=== PATIENT | female | born 1985 | race African-American/Black ===

== ENCOUNTER 2016-10-06 19:16 | Inpatient (IN) | payer OTHER ==
[~2016-10-06] VITALS: Ht 167.6 cm; Wt 100.0 kg
[~2016-10-06 19:16] MED LIST: ACET50TA PO; IBUP80TA PO; PRENTAB9 PO; [UNRECOGNIZED DRUG - CODE] SC
[2016-10-06 20:05] LABS: MEAN CORPUSCULAR HEMOGLOBIN 25.3 pg (27.0-33.0); MEAN CORPUSCULAR HGB CONC 32.2 g/dl (32.0-36.5); MEAN CORPUSCULAR VOLUME 78.5 fl (80.0-96.0); RED CELL DISTRIBUTION WIDTH 15.9 % (11.5-14.5); WHITE BLOOD COUNT 4.8 K/mm3 (4.0-10.0)
[2016-10-06] MEDS ORDERED: OXYTOCIN 30 UNITS IN 0.9% NaCl 500ML IV BAG (J2590) As Ordered ONE (20:26)
--- NOTE | 2016-10-06 21:23 | HPEPDOC ---
Obstetrical History & Physical General Date of Admission Oct 06, 2016 at 19:45 History of Present Illness Evelyne is a 30yo with SIUP at 39w5d presenting this evening for loss of fluid, clear, at 1800. She states she has not been having regular painful ctx. No vaginal bleeding. Feels good movement. 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 Complications: No Past Obstetrical History #2: Past Obstetrical History: Multigravida Date of Delivery: Jul 09, 2006 Gestation: 38 Type of Delivery: Spontaneous Vaginal Del. Complications: No Past Obstetrical History #3: Past Obstetrical History: Multigravida Date of Delivery: Oct 09, 2007 Gestation: 38 Type of Delivery: Spontaneous Vaginal Del. Complications: No Past Obstetrical History #4: Past Obstetrical History: Multigravida Date of Delivery: Nov 06, 2014 Gestation: 38 Type of Delivery: Spontaneous Vaginal Del. Complications: No (this of SIDS) SLATE PICKER History: Spontaneous , Herpes simplex virus(HSV) Past Medical History Medical History Ulcerative Colitis on Humira until 28wk, anemia Surgical History: Dilation and curettage, Breast Augmentation, [facility] Teeth Family History Significant Family History: No pertinent family hx Social History Marital Status: Family situation: Spouse/partner home Psychosocial History: No pertinent psych hx * Smoker: non-smoker Alcohol: denies Drugs: denies Imunizations Tdap status: declined Influenza Status: current Allergies Coded Allergies: No Known Drug Allergy (Verified Allergy, Unknown, 12/12/12) Medications Scheduled Multivitamins/ ( 27-0.8 mg) 1 Tab Tab 1 TAB PO DAILY Scheduled PRN Acetaminophen (Mapap) 500 Mg Tab 1,000 MG PO PRN PRN PRN PAIN Miscellaneous Medications (Humira) 10 Mg/0.2 Ml Inj 10 MG SC Physical Examination Physical Examination GENERAL: Alert and oriented times three. BREAST: . ABDOMEN: Gravid and non-tender to touch. FETUS: Is vertex (VTX) by sterile vaginal examination (SVE) HEART RATE: Regular rate and rhythm. LUNGS: Clear to auscultation (CTA). EXTREMITIES: trace edema of BLE Speculum exam with RN as drug inspector: no HSV lesions on thorough inspection of perineum, vulva, vaginal canal and cervix Nitrazine positive Laboratory Data 24H LABS Laboratory Tests 2 10/06/16 19:53: CBC/BMP Laboratory Tests 10/06/16 19:53 Red Blood Count 4.03, Mean Corpuscular Volume 78.5 L, Mean Corpuscular Hemoglobin 25.3 L, Mean Corpuscular Hemoglobin Concent 32.2, Red Cell Distribution Width 15.9 H Pertinent Laboratoy Data Blood Type: A+ RBC Antibody Screen: Negative HIV: Negative Hepatitis B: Negative Hepatitis C: Unknown Rapid Plasma Reagin: Nonreactive Rubella: Immune Chlamydia/Gonorrhea: Negative Group B Streptococcus: Negative Glucose Tolerance Test: 86 Anatomy Ultrasound Ultrasound Date: May 20, 2016 Placenta Location: Posterior Normal Anatomy: Yes Placenta Previa: No Steroid Therapy Steroid Therapy: No Vaginal Examination Dilation: 6 cm Effacement: 80+% Station: -2 Cervical Consistency: Soft Cervical Position: Anterior Presentation: Cephalic presentation Assessment Heart Rate (FHR): 120 Variability: Moderate Accelerations: Positive Decelerations: None Tocometer Contractions: Yes Frequency: irregular Duration: greater than 60 seconds Strength: palpated as mild Assessment/Plan Assessment Evelyne is a 30yo with SIUP at 39w5d with SROM at 1800, SCE 6/90/-2 ( forebag ruptured on SCE, clear fluid). Cat I FHRT. Cephalic by SCE. Ctx not yet painful and regular. GBS negative. PMhx: ulcerative colitis on Humira until 28wk, HSV II on valtrex since 36wk w/ last outbreak 1-2yr ago (negative exam on admission), anemia course: polyhydramnios with no congenital abnormalities noted on ultrasounds, nuchal fold 6.6 with normal NIPT. Has had 4 uncomplicated term SVDs previously, but one infant of SIDS. Plan Admit and orient. Counseled and consented verbally for Diet: clear liquids Group B Streptococcus (GBS) negative Labs and intravenous (IV) per unit protocol. Counseled on Pitocin and induction of labor (IOL). Hep lock IV for now Anticipate normal spontaneous delivery (). MD Meseret Aguayo OBGYN DAVIS, KATRINA D. MD Oct 06, 2016 21:23
[2016-10-06] MEDS ORDERED: IBUPROFEN 800 MG TAB As Ordered ONE (23:05)
[2016-10-07] MEDS ORDERED: ACETAMINOPHEN 500 MG TAB PO PRN (00:15)
[2016-10-07] MEDS ORDERED: LIDOCAINE 1% MDV INJ 50 ML VIAL INFIL ONE ×2 (00:15→16:00)
[2016-10-07] MEDS ORDERED: MEASLES,MUMPS,RUBELLA VACCINE INJ (MMR-II) (90707) SC SCH (00:15)
[2016-10-07] MEDS ORDERED: METHYLERGONOVINE MALEATE 0.2 MG TAB PO PRN (00:15)
[2016-10-07] MEDS ORDERED: DIBUCAINE 1% OINTMENT 30GM TOP PRN (00:15)
[2016-10-07] MEDS ORDERED: miSOPROStol 200 MCG TAB (S0191) PR ONE ×2 (00:15→16:00)
[2016-10-07] MEDS ORDERED: OXYTOCIN INJ 10 UNITS/ML VIAL (J2590) IM ONE ×2 (00:15→16:00)
[2016-10-07] MEDS ORDERED: RHOGAM 300 MCG (1500 IU) INJ (J2790) IM SCH (00:15)
--- NOTE | 2016-10-07 00:25 | DNPDOC ---
Delivery Note Delivery Note DATE OF DELIVERY: Oct 06, 2016 at 21:45 PREDELIVERY DIAGNOSIS: term IUP at 39w5d with SROM POST DELIVERY DIAGNOSIS: Delivered. PROCEDURE: Spontaneous vaginal delivery MASON FOREMAN/SUPERINTENDANT: Dr. Babar Lindsay MD ANESTHESIA: lidocaine ESTIMATED BLOOD LOSS: 300 mL. FINDINGS: 10 pound 10 ounce male , Score 9/10, no nuchal cord DELIVERY SUMMARY: Evelyne is a 30yo G8 now [id number] who was admitted to L&D for SROM. She had an uncomplicated of a viable male infant at 2145 on 06 Oct 2016 at 39w5d. Head delivered OA, restituted ELIZABETH. No nuchal cord. Left anterior shoulder delivered followed by posterior shoulder and corpus. mouth/nares bulb suctioned. Spontaneous cry noted. Baby placed on mother's abdomen. Cord clamped x2 and cut by FOB after 1 min delayed cord clamping. Apgars 9/10, weight 4818g (10#10oz). No indication to obtain cord blood. With gentle downward guidance and suprapubic pressure, placenta delivered spontaneously and intact. Fundal massage until both uterine fundus and lower uterine segment firm; fundus at U- 1. Pitocin 10 units IM administered. Inspection of cervix, perineum, vaginal wall revealed 2MLL closed with 3.0 vicryl suture with good hemostasis using lidocaine for anesthetic. 1000mcg cytotec placed rectally prophylactically since had polyhydramnios, large infant, and rapid labor as bleeding risk factors. Mom and infant in stable condition. BABAR LINDSAY MD Oct 07, 2016 00:25
[2016-10-07 00:49] VITALS: BP 109/58
[2016-10-07 06:23] VITALS: BP 111/55
--- NOTE | 2016-10-07 08:03 | IPNPDOC ---
Text Note Date of Service The patient was seen on 10/07/16 at 07:59. NOTE PPD1 Evelyne is a 30yo doing well on PPD 1 s/p uncomplicated . She is . Lochia normal, spontaneously voiding and ambulating without difficulty. Tolerating regular diet. Denies f/c/n/v/SOB/CP/ALAN/abdominal pain. Received PA cytotec and IM pitocin after delivery for prophylaxis against bleeding (risk factors: polyhydramnios, infant [id number] and quick labor). PMhx significant for ulcerative colitis (on Humira until 28wk) with anemia, HSV II on valtrex from 36wk. Vitals wnl, afebrile Exam: General: WDWN, NAD, resting comfortably Cardiac: S1S2 present, no murmur Lungs: CTAB without wheeze/crackles Abdomen: soft, NTTP, fundus firm u-2cm Extremities: no tenderness of calves bilaterally Assessment: Evelyne is a 30yo doing well on PPD 1 s/p uncomplicated . No e/o infection, hemodynamically stable. Plan: -routine post- care -motrin/tylenol for pain -encourage , ambulation -undecided on contraception at this time Dr. Babar Lindsay MD [place] EVA WEINBERG,Jesus, I+O VSJesus, I+O Laboratory Tests 10/06/16 19:53 Red Blood Count 4.03, Mean Corpuscular Volume 78.5 L, Mean Corpuscular Hemoglobin 25.3 L, Mean Corpuscular Hemoglobin Concent 32.2, Red Cell Distribution Width 15.9 H Vital Signs Date Time Temp Pulse Resp B/P Pulse Ox O2 Delivery O2 Flow Rate FiO2 10/07/16 06:23 98.4 88 18 111/55 I&O- Last 24 Hours up to 6 AM 10/07/16 06:00 Output Total 300 ml Balance -300 ml BABAR LINDSAY MD Oct 07, 2016 08:03
[2016-10-07] MEDS: PRENATAL VITAMIN TAB PO SCH (08:41)
[2016-10-07] MEDS: IBUPROFEN 800 MG TAB PO PRN ×2 (08:41→18:13)
[2016-10-07] MEDS ORDERED: ADACEL/BOOSTRIX VACCINE (DIPHTH/PERTUSS/ACELL/TETANUS)0.5ML SYR (90715) IM SCH (09:00)
[2016-10-07 17:57] VITALS: BP 114/59
[2016-10-08 06:19] VITALS: BP 108/62
--- NOTE | 2016-10-08 07:51 | DS.PDOC ---
Discharge Summary General Date of Admission Oct 06, 2016 at 19:45 Date of Discharge [id number] Discharge Summary COMPLICATIONS/CHIEF COMPLAINT: Ruptured Membranes at term ADMISSION DIAGNOSES: 1. Active labor, ruptured membranes DISCHARGE DIAGNOSES: 1. of a 10 lb 10 oz male HOSPITAL COURSE: Patient was admitted in labor and had an uncomplicated delivery other than a second degree perineal laceration, repaired successfully. She had an uncomplicated course thereafter. DISCHARGE MEDICATIONS: Motrin, Lanolin, Dibucaine PHYSICAL EXAMINATION ON DISCHARGE: see prog note from this AM VITAL SIGNS: Please see below. DISCHARGE CONDITION: stable DISPOSITION: to home ACTIVITY: Nothing in the vagina for 6-8 weeks. Regular diet. DISCHARGE PLAN AND INSTRUCTIONS: follow up at 6 week visit Sessions Vital Signs/I&Os Vital Signs Date Time Temp Pulse Resp B/P Pulse Ox O2 Delivery O2 Flow Rate FiO2 10/08/16 06:19 98.0 98 18 108/62 Medications Scheduled Multivitamins/ ( 27-0.8 mg) 1 Tab Tab 1 TAB PO DAILY Scheduled PRN Acetaminophen (Mapap) 500 Mg Tab 1,000 MG PO PRN PRN PRN PAIN Miscellaneous Medications (Humira) 10 Mg/0.2 Ml Inj 10 MG SC Allergies Coded Allergies: No Known Drug Allergy (Verified Allergy, Unknown, 12/12/12) SESSIONS,MANNY Wayne MD Oct 08, 2016 07:51
--- NOTE | 2016-10-08 07:58 | IPNPDOC ---
Text Note Date of Service The patient was seen on 10/08/16 at 07:58. NOTE PPD2 prog note Pt states feeling well, minimal pain. VB slowing. Baby feeding OK. No CP/LP/ SOB. Voiding and ambulatory. VSSAF Fundus at U-2, firm LE no CCE a/p: Doing well. Discharge this AM, to boarding if baby not released. Sessions VS,Jesus, I+O VSJesus I+O Vital Signs Date Time Temp Pulse Resp B/P Pulse Ox O2 Delivery O2 Flow Rate FiO2 10/08/16 06:19 98.0 98 18 108/62 SESSIONS,MANNY Wayne MD Oct 08, 2016 07:58
[2016-10-08] MEDS: IBUPROFEN 800 MG TAB PO PRN (08:13)
[2016-10-08] MEDS: PRENATAL VITAMIN TAB PO SCH (08:13)
[2016-10-08] MEDS ORDERED: IBUP-1114 PO (08:27)
[2016-10-08] MEDS ORDERED: PRENTAB9 PO (08:27)
[2016-10-08] MEDS ORDERED: ACET50TA PO (08:27)
[2016-10-08] MEDS ORDERED: NUPE1OIN2 TOP (08:27)
== END 2016-10-08 11:20 | disposition home or self-care (01) | DRG 774 ==
LOC: M LDO 19:16 → M LDI 19:45 → M OBS 10-07 00:39
PROVIDERS: ADMIT Obstetrics & Gynecology; ATTEND Obstetrics & Gynecology
PROC: 10E0XZZ Delivery of Products of Conception, External Approach (ICD-10-PCS; principal; 2016-10-06)
PROC: 0KQM0ZZ Repair Perineum Muscle, Open Approach (ICD-10-PCS; 2016-10-06)
DX: O40.3XX0 Polyhydramnios, third trimester, not applicable or unspecified (principal); O98.32 Other infections with a predominantly sexual mode of transmission complicating childbirth; K51.90 Ulcerative colitis, unspecified, without complications; O99.62 Diseases of the digestive system complicating childbirth; Z3A.39 39 weeks gestation of pregnancy; A60.09 Herpesviral infection of other urogenital tract; O99.02 Anemia complicating childbirth; D64.9 Anemia, unspecified; O70.1 Second degree perineal laceration during delivery; O62.3 Precipitate labor; O36.63X0 Maternal care for excessive fetal growth, third trimester, not applicable or unspecified; Z37.0 Single live birth

== ENCOUNTER → 2017-03-07 | Outpatient (REF) | payer OTHER ==
[~2017-03-07] MED LIST changes: +IBUP-1114 PO; +NUPE1OIN2 TOP
== END ==
LOC: M SFHCLERA 11:58
PROVIDERS: ATTEND Physician Assistant
DX: L29.8 Other pruritus (principal); R30.0 Dysuria